=== PATIENT | female | born 1970 | race Caucasian/White ===

== ENCOUNTER 2019-09-29 13:05 | Emergency (ER) | payer SELFPAY ==
[~2019-09-29] VITALS: Ht 165.1 cm; Wt 99.8 kg
--- NOTE | 2019-09-29 13:05 | NUR ---
PT BIBA TO ER BED 01
[2019-09-29 13:09] VITALS: BP 140/75
--- NOTE | 2019-09-29 13:20 | NUR ---
PT PLACED ON PULSE OX AND 3 LEAD ECG.
--- NOTE | 2019-09-29 13:27 | NUR ---
48 Y/F BIBA C/O UPPER BACK PAIN 01/12 WITH SOB X TODAY. PT DENIES INJURY. PT HAD SEEN PCP 09/11 AND AGAIN LAST WEEK. PT WAS GIVEN FLEXERIL, PT REPORTS NO RELIEF. PT WAS ALSO TAKING ATB FOR UTI. PT DENIES COUGH, FEVER, N/V/D. FULL CLEAR SPEECH WITH NO ACCESSORY MUSCLE USE NOTED. LUNGS CLEAR, ABD SOFT, BS ACTIVE X 4. NO PEDAL EDEMA. CAP REFILL <3. HX--DENIES NKDA
--- NOTE | 2019-09-29 13:31 | NUR ---
DR BLANCHARD AT BEDSIDE EXAMINING PT
[2019-09-29] MEDS ORDERED: KETOROLAC 30 MG/ML VIAL IVP ONE (13:35)
--- NOTE | 2019-09-29 13:50 | NUR ---
20G IV PLACED TO RT AC, LABS DRAWN AT THIS TIME
--- NOTE | 2019-09-29 14:30 | NUR ---
STATES DECREASE IN PAIN
--- NOTE | 2019-09-29 14:44 | NUR ---
XRAY AT BEDSIDE
[2019-09-29 14:54] LABS: ALBUMIN 3.5 g/dL (3.4-5.0); ANION GAP 15.1 (8-16); CARBON DIOXIDE 24.8 mmol/L (21-32); CREATININE 0.8 mg/dL (0.6-1.3); POTASSIUM 3.9 mmol/L (3.5-5.1); TOTAL BILIRUBIN 0.3 mg/dL (0.0-1.0)
[2019-09-29 15:43] LABS: BASOPHILS % (AUTO) 0.4 % (0.0-2.0); EOSINOPHILS # (AUTO) 0.1 K/uL (0-0.4); EOSINOPHILS % (AUTO) 0.6 % (0.0-4.0); HEMATOCRIT 39.7 % (36-48); LYMPHOCYTES # (AUTO) 1.6 K/uL (2.5-16.5); LYMPHOCYTES % (AUTO) 18.9 % (20.5-51.1); MEAN CORPUSCULAR HEMOGLOBIN 29 pg (27-31); MEAN CORPUSCULAR HGB CONC 33 g/dL (33-37); MEAN CORPUSCULAR VOLUME 86.8 fL (80-94); MONOCYTES # (AUTO) 0.5 K/uL (0.8-1.0); MONOCYTES % (AUTO) 6.5 % (1.7-9.3); NEUTROPHILS # (AUTO) 6.2 K/uL (1.8-7.7); NEUTROPHILS % (AUTO) 73.6 % (42.2-75.2); PLATELET COUNT (AUTO) 266 K/uL (140-450); RED BLOOD CELL COUNT(AUTO) 4.57 MIL/uL (4.20-5.40); RED CELL DISTRIBUTION WIDTH 13.9 % (11.6-13.7); WHITE BLOOD COUNT (AUTO) 8.5 K/uL (4.8-10.8)
[2019-09-29 16:31] VITALS: BP 137/69
--- NOTE | 2019-09-29 16:31 | NUR ---
Patient discharged with v/s stable. Written and verbal after care instructions given and explained. Patient alert, oriented and verbalized understanding of instructions. Ambulatory with steady gait. All questions addressed prior to discharge. ID band removed. Patient advised to follow up with PMD. Rx of ALBUTEROL, FLEXERIL, AND TESSALON PERLES given. Patient educated on indication of medication including possible reaction and side effects. Opportunity to ask questions provided and answered.
== END 2019-09-29 16:31 | disposition home or self-care (01) ==
LOC: EEVIPCON 13:05 → MED 13:05
DX: R06.02 Shortness of breath (principal); Z20.828 Contact with and (suspected) exposure to other viral communicable diseases; M79.10 Myalgia, unspecified site
CPT/HCPCS: 36415; 71045; 80053; 81002; 81025; 84484; 85025; 87635; 93005; 96374; 99285; J1885

== ENCOUNTER 2019-10-02 16:11 | Emergency (ER) | payer SELFPAY ==
[~2019-10-02] VITALS: Ht 162.6 cm; Wt 109.8 kg
[2019-10-02 16:15] VITALS: BP 149/99
--- NOTE | 2019-10-02 16:21 | NUR ---
PT TAKEN TO BED 4.
--- NOTE | 2019-10-02 16:22 | NUR ---
PT PLACED ON PULSE OX. RR EVEN AND UNLABORED
--- NOTE | 2019-10-02 16:33 | NUR ---
48 Y/F PRESENTS TO ED FOR POSSIBLE PILL STUCK IN THROAT SINCE YESTERDAY, O2 SAT 97, P-77. PT REPORTING SOB DUE TO PILL STUCK IN THROAT. NO VISIBLE FOREIGN BODY SEEN IN THROAT. ORAL MUCOSA MOIST. PT ALSO REPORTS "BALL" IN RUQ OF ABD X 1 WEEK. BS ACTIVE. ABD SOFT. SMALL PALPABLE MASS IN RUQ OF ABD, C TENDERNESS. BS ACTIVE X 4. PT A&O X 4. RR EVEN AND UNLABORED. VSS. PT DENIES V/D OR CONSTIPATION. PT RECENTLY SCENE AND DISCHARGED FOR BACK PAIN, COUGH, AND TREATED FOR UTI. PMH- GASTRITIS NKDA RX- CEPHALEXIN, FLEXERIL, TESSALON, AND OMEPRAZOLE
--- NOTE | 2019-10-02 17:05 | NUR ---
DR. HUNTER AT BEDSIDE.
[2019-10-02] MEDS ORDERED: GLUCAGON 1 MG VIAL IVP ONE (17:15)
--- NOTE | 2019-10-02 17:23 | NUR ---
CALLED HOUSE [facility] FOR GLUCAGON.
--- NOTE | 2019-10-02 17:32 | NUR ---
CALLED PHARMACY AND LEFT VOICEMAIL REGARDING GLUCAGON.
--- NOTE | 2019-10-02 17:54 | NUR ---
PT GIVEN WATER, ABLE TO DRINK WATER WITHOUT DIFFICULTY. DR HUNTER MADE AWARE
[2019-10-02 18:07] VITALS: BP 131/67
--- NOTE | 2019-10-02 18:07 | NUR ---
Patient discharged with v/s stable. Written and verbal after care instructions given and explained. Patient verbalized understanding. Ambulatory with steady gait. All questions addressed prior to discharge. Advised to follow up with PMD.
== END 2019-10-02 18:07 | disposition home or self-care (01) ==
LOC: MED 16:11
DX: T18.108A Unspecified foreign body in esophagus causing other injury, initial encounter (principal); K21.9 Gastro-esophageal reflux disease without esophagitis; F41.9 Anxiety disorder, unspecified; X58.XXXA Exposure to other specified factors, initial encounter; Y93.89 Activity, other specified; Y92.89 Other specified places as the place of occurrence of the external cause; Y99.8 Other external cause status
CPT/HCPCS: 96374; 99283; J1610

== ENCOUNTER 2023-03-26 18:20 | Emergency (ER) | payer MEDICAID ==
[~2023-03-26] VITALS: Ht 162.6 cm; Wt 128.8 kg
[2023-03-26 18:49] VITALS: BP 158/82; PULSE 82; RESP 18; TEMP 98; O2SAT 100
[2023-03-26 19:00] VITALS: BP 158/82; PULSE 82; RESP 18; TEMP 98
[2023-03-26 19:27] VITALS: O2SAT 100
[2023-03-26] MEDS ORDERED: BACITRACIN OINT 500 UNITS/GM PKT TP ONE ×3 (19:51→20:05)
== END 2023-03-26 20:01 | disposition home or self-care (01) ==
LOC: MED 18:20
DX: K21.9 Gastro-esophageal reflux disease without esophagitis (principal); I10 Essential (primary) hypertension; Z79.899 Other long term (current) drug therapy; S91.201A Unspecified open wound of right great toe with damage to nail, initial encounter; X58.XXXA Exposure to other specified factors, initial encounter; Y93.89 Activity, other specified; Y92.89 Other specified places as the place of occurrence of the external cause; Y99.8 Other external cause status
CPT/HCPCS: 73660; 99283; Q0092